=== PATIENT | female | born 1970 | race Caucasian/White ===

== ENCOUNTER → 2017-03-16 | Outpatient (CLI) | payer OTHER | END | disposition home or self-care (01) | LOC: CFH 14:45 | PROVIDERS: ATTEND Obstetrics & Gynecology | DX: Z12.31 Encounter for screening mammogram for malignant neoplasm of breast (principal); Z80.3 Family history of malignant neoplasm of breast; Z98.82 Breast implant status | CPT/HCPCS: G0202 ==

== ENCOUNTER → 2018-04-27 | Outpatient (CLI) | payer OTHER | END | disposition home or self-care (01) | LOC: CFH 15:10 | PROVIDERS: ATTEND Obstetrics & Gynecology | DX: Z12.31 Encounter for screening mammogram for malignant neoplasm of breast (principal); Z80.3 Family history of malignant neoplasm of breast | CPT/HCPCS: 77063; 77067 ==

== ENCOUNTER → 2018-10-01 | Outpatient (CLI) | payer OTHER ==
[~2018-10-01] MED LIST: GADOBUTROL 7.5 MMOL/7.5 ML PFS ONE
== END | disposition home or self-care (01) ==
LOC: CFH 15:04
PROVIDERS: ATTEND Neurological Surgery
DX: D33.0 Benign neoplasm of brain, supratentorial (principal)
CPT/HCPCS: 70553; A9585

== ENCOUNTER 2019-05-02 15:00 | Outpatient (CLI) | payer OTHER | END 2019-05-02 23:59 | disposition home or self-care (01) | LOC: CFH 15:00 | PROVIDERS: ATTEND Obstetrics & Gynecology | DX: Z12.31 Encounter for screening mammogram for malignant neoplasm of breast (principal) | CPT/HCPCS: 77063; 77067 ==